=== PATIENT | female | born 1975 | race Two or more races ===

== ENCOUNTER 2019-08-23 03:58 | Emergency (ER) | payer MEDICAID ==
[~2019-08-23] VITALS: Ht 154.9 cm; Wt 65.8 kg
--- NOTE | 2019-08-23 04:24 | Emergency Room Report ---
History of Present Illness General Chief Complaint: To Be Triaged Present Illness HPI 43-year-old female no reported past medical history presented for urinary frequency and urgency. Symptoms present for the last 10 hours. She denies any fevers nausea or vomiting. Does report some suprapubic pain. He has had similar UTIs in the past. Allergies: Coded Allergies: SULFA (SULFONAMIDE ANTIBIOTICS) (Verified Allergy, Unknown, 08/23/19) Uncoded Allergies: SULFA (Allergy, Unknown, 08/23/19) Patient History Reviewed Nursing Documentation: PMH: Agreed; PSxH: Agreed Review of Systems All Other Systems: negative except mentioned in HPI Physical Exam Sp02 EP Interpretation: reviewed, normal General Appearance: well appearing, no apparent distress Head: normocephalic, atraumatic Eyes: bilateral eye PERRL, bilateral eye EOMI ENT: hearing grossly normal, moist mucus membranes Neck: full range of motion, supple Respiratory: lungs clear, normal breath sounds, no rhonchi, no respiratory distress, no retraction, no wheezing Cardiovascular #1: normal peripheral pulses, regular rate, rhythm, no murmur Gastrointestinal: non tender, soft, non-distended, no guarding Neurologic: alert, oriented x3, no focal defects Skin: normal color, warm/dry Medical Decision Making ER Course Patient presented with urinary frequency and urgency. Differential included UTI , less likely appendicitis or surgical abdominal disease. She has had UTIs in the past. She states this feels similar. Urinalysis ordered. Urinalysis was consistent with UTI. Patient given first dose of antibiotic in the ER in addition to Pyridium. Will be discharged home with the same. She was recommended to follow-up with her primary care doctor. Stable for discharge with return precautions. Disposition: HOME, SELF-CARE Condition: Stable Scripts Phenazopyridine Hcl* (PYRIDIUM*) 100 Mg Tablet 100 MG ORAL THREE TIMES A DAY PRN for For Pain for 7 Days, TAB Prov: Lior Peterson M.D. 08/23/19 Nitrofurantoin Monohyd/M-Cryst* (MACROBID 100 MG*) 100 Mg Capsule 100 MG ORAL EVERY 12 HOURS for 10 Days, CAP Prov: Lior Peterson M.D. 08/23/19 Lior Peterson M.D. Aug 23, 2019 04:24
[2019-08-23 04:31] LABS: APPEARANCE,URINE CLOUDY; BILIRUBIN, URINE NEGATIVE (NEGATIVE); COLOR,URINE PALE YELLOW; GLUCOSE, URINE (UA) NEGATIVE (NEGATIVE); KETONES,URINE 1+ (NEGATIVE); LEUKOCYTE ESTERASE ,URINE 3+ (NEGATIVE); NITRITE,URINE NEGATIVE (NEGATIVE); PH,URINE 6 (4.5-8.0); PROTEIN,URINE 3+ (NEGATIVE); UROBILINOGEN,URINE NORMAL MG/DL (0.0-1.0)
[2019-08-23] MEDS ORDERED: PHENAZOPYRIDIN100 MG ORAL (04:53)
[2019-08-23] MEDS ORDERED: NITROFURANTOIN100 M2 ORAL (04:53)
[2019-08-23 05:00] VITALS: BP 131/74
[2019-08-23] MEDS ORDERED: Phenazopyridine 200mg tab ORAL ONE (05:00)
[2019-08-23 05:10] VITALS: BP 131/74
== END 2019-08-23 05:10 | disposition home or self-care (01) ==
LOC: EMR 04:12
DX: R35.0 Frequency of micturition (principal); R39.15 Urgency of urination; Z88.2 Allergy status to sulfonamides
CPT/HCPCS: 81003; 81025; 87086; 87181; Z7502; 99283